=== PATIENT | female | born 1985 | race Caucasian/White ===

== ENCOUNTER 2021-01-04 12:53 | Outpatient (REF) | payer OTHER, SELFPAY ==
--- NOTE | ~2021-01-04 | XR_ITS ---
EXAMINATION: XR hand LT min 3V, XR hand RT min 3V CLINICAL INFORMATION: Bilateral hand pain. COMPARISON: None. TECHNIQUE: Left hand 3 views. Right hand 3 views. FINDINGS: LEFT HAND: No bony abnormality is demonstrated. Joint spaces are maintained. No erosions or soft tissue calcifications. RIGHT HAND: 3 views the right hand are also normal. XR/XR hand LT min 3V IMPRESSION: Normal examination.
--- NOTE | ~2021-01-04 | XR_ITS ---
EXAMINATION: XR hand LT min 3V, XR hand RT min 3V CLINICAL INFORMATION: Bilateral hand pain. COMPARISON: None. TECHNIQUE: Left hand 3 views. Right hand 3 views. FINDINGS: LEFT HAND: No bony abnormality is demonstrated. Joint spaces are maintained. No erosions or soft tissue calcifications. RIGHT HAND: 3 views the right hand are also normal. XR/XR hand RT min 3V IMPRESSION: Normal examination.
[2021-01-04 15:44] LABS: C Reactive Protein 0.14 mg/dL (< or = 0.50); Rheumatoid Factor < 15.0 IU/mL (<15.0)
[2021-01-04 16:43] LABS: Erythrocyte Sedimentation Rate 2 MM/HR (0-20)
[2021-01-10 13:57] LABS: Anti Nuclear Antibody Screen NEGATIVE (NEGATIVE)
== END 2021-01-04 12:54 | disposition home or self-care (01) ==
LOC: HO.HMGCX 12:53
PROVIDERS: PCP Internal Medicine; Visit Provider Internal Medicine
DX: M79.641 Pain in right hand (principal)
CPT/HCPCS: 36415; 73130; 85652; 86038; 86039; 86140; 86431

== ENCOUNTER 2021-08-13 13:27 | Emergency (ER) | payer OTHER, SELFPAY ==
--- NOTE | ~2021-08-13 | CT_ITS ---
EXAMINATION: CT HEAD WITHOUT CONTRAST CLINICAL INFORMATION: Head injury. Loss of consciousness. COMPARISON: None TECHNIQUE: Contiguous axial imaging was performed from the skull base to vertex without intravenous administration of contrast. Coronal and sagittal reformatted images are performed at CT scanner This CT examination was performed using dose optimization techniques as appropriate, variously including the following: *Automated exposure control *Adjustment of mA and/or kV according to patient size (this includes techniques or standardized protocols for targeted exams where dose is matched to indication/reason for exam; i.e. extremities or head) *Use of iterative reconstruction technique DLP: 606 mGy-cm FINDINGS: There is no evidence of acute intracranial hemorrhage or territorial infarction. No abnormal mass effect or midline shift is seen. Gagnon to white matter differentiation is well preserved. No extra-axial fluid collections are identified. The ventricles are normal in size. There is no abnormal attenuation within the brain parenchyma. The osseous structures and soft tissues are normal. The mastoid air cells and visualized portions of the paranasal sinuses are well aerated. CT/CT head/brain wo con IMPRESSION: No acute intracranial pathology.
[2021-08-13 14:08] VITALS: BP 105/73; PULSE 74; RESP 18; TEMP 36.6; O2SAT 98; BMI 20.3
[2021-08-13] MEDS: Ondansetron ODT 4 MG TAB.RAPDIS TRANSLINGU (14:15)
--- NOTE | 2021-08-13 17:04 | ED.HEATRA ---
HPI - Head Injury General Chief complaint: Head Injury Stated complaint: ? Concussion Time Seen by Provider: 08/13/21 15:23 Source: patient Mode of arrival: ambulatory Limitations: no limitations History of Present Illness HPI Narrative: 36-year-old female who presents emergency department for evaluation head injury with headache, nausea, vomiting, feeling off balance. The patient was playing indoor soccer yesterday at around 21:30 when a soccer ball was kicked and struck her in the left caodaism area of her head. The patient states that she developed loss of vision in her ringing sensation in both ears. She states she went down to her knees but does not think that she lost consciousness. She states that she had difficulty remembering what happened for brief period of time. She states she got up and tried to continue to play but then took herself out of the game since she was not feeling well. She states that she went home and went to bed. When she woke up this morning she had a headache. She describes the headache as being located behind her eyes, the headache is a pressure-like sensation which is been constant initial 3/10. She has had associated nausea with no vomiting. She has felt off balance. She states she is having difficulty concentrating. She has intermittent ringing in both ears. She took ibuprofen last night and she believes it did help but she continues to have symptoms this morning. The patient's symptoms are persisting, therefore she came to the emergency department for evaluation. She denied being ill prior to the head injury, she denied fever, chills, chest pain, shortness of breath, rhinorrhea, cough, abdominal pain. The patient does have a history endometriosis and does take progesterone on a regular basis. She also takes Vyvanse and sertraline. She does not take blood thinners. Complaint: head injury Onset (ago): day(s) (1) Mechanism of Injury: sports related injury (Kicked soccer ball struck the left side of her head) Place: other (Indoor soccer) Loss of Consciousness: no Location of injury: temporal (Left) Severity: severe Severity scale (1-10): 3 Quality: other (Pressure) Radiation: none Other Injuries: none Associated symptoms: vision changes, nausea and vertigo Related Data Previous Rx's Medication Instructions Recorded metoclopramide HCl 10 mg tablet 10 mg PO Q6H PRN #14 tab 08/13/21 (Reglan) Allergies Allergy/AdvReac Type Severity Reaction Status Date / Time Unable to Assess Allergy Verified 08/13/21 16:10 Review of Systems Review of Systems: Yes all other systems are reviewed and are negative [facility] Past Medical History FOR[facility], [facility] Narrative: Social history: The patient works as a occupational/speech therapist, she is her Bam is here in the emergency department with her. She denies tobacco use. She drinks alcohol twice a month. She takes marijuana edibles at night to help her sleep. Medical History ADD (attention deficit disorder) Bladder endometriosis Depression Social History Social History Advance Directives: No Advance Directives Information Provided: No Patient : No (unsure) Physical Exam Vital Signs: Vital Signs: Last Vital Signs Temp 97.9 F 08/13/21 14:08 Pulse 74 08/13/21 14:08 Resp 18 08/13/21 14:08 BP 105/73 08/13/21 14:08 Pulse Ox 98 08/13/21 14:08 BMI result Body Mass Index 20.3 Const: General: cooperative and no acute distress Orientation/consciousness: oriented to person and oriented to place Limitations: no limitations HENMT: Head: Yes normal to inspection, Yes normocephalic and Yes atraumatic Ears: external ears normal and TM's normal bilaterally General nose exam: Normal external nose present Face and sinus: Yes normal facial exam Mouth: Normal oral and palatal mucosa present Throat: Yes posterior oropharynx normal Eyes: General: appearance normal, both eyes and all related structures Pupils: Equal, round and reactive pupils present Neck: Neck: Yes normal visual inspection, Yes no lymphadenopathy, Yes trachea midline and Yes supple Chest: Chest palpation & inspection: normal inspection of the chest and normal palpation of entire chest wall Resp: Effort & Inspection: normal respiratory effort and able to speak in complete sentences Auscultation: clear to auscultation bilaterally Cardio: Rate: regular rate Rhythm: regular rhythm Heart sounds: S1 normal heart sound present, S2 normal heart sound present and no murmurs GI: Inspection: Yes normal to inspection Palpation (GI): Soft to palpation, nontender and no guarding Auscultation: normal bowel sounds : General: Yes no CVA tenderness Back/Spine/Pelvis: Back: no CVA tenderness Skin: General skin exam: no rashes or lesions noted Neuro: General: oriented to person and oriented to place Cranial nerves: Yes CN's II-XII intact bilaterally and Yes Equal, round and reactive pupils present Cognition (Neuro): normal cognition Motor exam (neuro): 5/5 motor strength present throughout Extrem: General: Yes normal to inspection Psych: Appearance: grossly normal Speech and movement: Normal speech and movement present Affect: normal affect Attitude: cooperative Thought process: Normal thought process present Thought content: Normal thought content present Course Course Course Narrative: 36-year-old female who presents emergency department for evaluation of headache, nausea, off balance, ringing in her ears after getting a head injury yesterday at 21:30 hours, the patient was playing indoor soccer and a soccer ball was kicked and struck her her left caodaism area of her head. Patient has no tenderness with palpation of her scalp. Her neurologic exam was nonfocal. Given the mechanism injury in the area of injury, I am concerned the patient may have a skull fracture , bleed versus concussion. Patient was ordered to get Tylenol 975 mg orally, Reglan 10 mg orally and Benadryl 50 mg orally. She also received Zofran [address] scan of the patient's head without IV contrast will be obtained. 1808: Patient's CT scan of the brain revealed no acute abnormalities. Patient's presentation is consistent with concussion. I did discuss this with the patient and her . The patient will be given a work note to return on 08/19/2021. Her headaches and symptoms will treated with the following regimen: Reglan 10 mg, Benadryl 50 mg Excedrin migraine 1 tablet every 6 hours as needed. She was given verbal and printed instructions and discharged home. Discharge Plan Discharge Clinical Impression: Closed head injury, Concussion without loss of consciousness Patient Disposition: Home, Self-Care Instructions: Head Injury (ED) Additional Instructions: The CT scan of your head without contrast was normal. There were no skull fractures, bleeding in your brain or other abnormalities noted by the radiologist. This is very reassuring Your symptoms were caused by the head injury which caused you to have a concussion. I want you to take the following 3 medications together every 6 hours as needed for headache, nausea or vomiting. Reglan (metoclopramide) in 10 mg, 1 pill Benadryl 25 mg, 2 pills Excedrin migraine, 1 pill. After you take these medications, lie down in a dark quiet room and try to fall asleep. These medications will make you sleepy, do not drive or work after taking these medications. Follow-up with your doctor in 2 days. Please return to the emergency department if your symptoms get worse or if you develop any symptoms that are concerning to you. Please see the work note. Prescriptions: New metoclopramide HCl [Reglan] 10 mg tablet 10 mg PO Q6H PRN (Reason: nausea and vomiting) Qty: 14 0RF Stand Alone Forms: Work/School Release
[2021-08-13] MEDS: Acetaminophen 325 MG TABLET 975 MG PO (17:47)
[2021-08-13] MEDS: diphenhydrAMINE HCL 25 MG TABLET 50 MG PO (17:48)
[2021-08-13] MEDS: Metoclopramide HCl 10 MG TABLET PO (17:49)
== END 2021-08-13 18:40 | disposition home or self-care (01) ==
PROVIDERS: Emergency Provider Emergency Medicine Emergency Medical Services; PCP Internal Medicine
DX: S09.90XA Unspecified injury of head, initial encounter (principal); S06.0X0A Concussion without loss of consciousness, initial encounter; W21.02XA Struck by soccer ball, initial encounter; Y93.66 Activity, soccer; Y92.318 Other athletic court as the place of occurrence of the external cause; Y99.9 Unspecified external cause status
CPT/HCPCS: 70450; 99283; 99284; Q0163

== ENCOUNTER 2021-09-13 10:38 | Outpatient (REF) | payer OTHER, SELFPAY ==
[2021-09-14 11:10] LABS: BV Int Neg Control Negative (Negative); BV Int Pos Control Positive (Positive)
== END 2021-09-13 10:39 | disposition home or self-care (01) ==
LOC: HO.LAB 10:38
PROVIDERS: PCP Internal Medicine; Visit Provider Advanced Practice Midwife
DX: Z01.411 Encounter for gynecological examination (general) (routine) with abnormal findings (principal); N89.8 Other specified noninflammatory disorders of vagina; E28.2 Polycystic ovarian syndrome; N80.0 Endometriosis of uterus
CPT/HCPCS: 87480; 87510; 87660

== ENCOUNTER 2021-10-30 11:58 | Emergency (ER) | payer OTHER, SELFPAY ==
[2021-10-30] VITALS (7 sets, daily range): BP systolic 102–116; BP diastolic 55–80; PULSE 62–89; RESP 15–20; TEMP 36.7–37.4; O2SAT 98–100; BMI 20.3
--- NOTE | 2021-10-30 | ECG_ITS ---
Test Reason : CHEST PAIN Blood Pressure : / mmHG Vent. Rate : 067 BPM Atrial Rate : 067 BPM P-R Int : 128 ms QRS Dur : 088 ms QT Int : 384 ms P-R-T Axes : 061 082 -32 degrees QTc Int : 405 ms Normal sinus rhythm with sinus arrhythmia T wave abnormality, consider inferior ischemia Abnormal ECG No previous ECGs available Referred By: Generic ED Physician Electronically Signed By:LEWIS MORA MD
--- NOTE | ~2021-10-30 | CT_ITS ---
EXAMINATION: CT ANGIOGRAM OF THE CHEST WITH AND WITHOUT CONTRAST (CT PULMONARY ANGIOGRAM FOR PE) CLINICAL INFORMATION: Reason for Exam Chest pain, shortness of breath, status post COVID COMPARISON: None TECHNIQUE: Prior to contrast administration, noncontrast localization images were obtained. Subsequently, multidetector volumetric imaging was performed from the thoracic inlet to below the diaphragms following the administration of 65 mL Omnipaque 350 intravenous contrast. No contrast reaction reported Sagittal, coronal, and MIP oblique sagittal reformatted images were obtained on the CT workstation, uploaded to PACS, and reviewed. This CT examination was performed using dose optimization techniques as appropriate, variously including the following: *Automated exposure control *Adjustment of mA and/or kV according to patient size (this includes techniques or standardized protocols for targeted exams where dose is matched to indication/reason for exam; i.e. extremities or head) *Use of iterative reconstruction technique Total exam dose-length product 217 mGy-cm FINDINGS: QUALITY OF STUDY/CONTRAST BOLUS: Satisfactory. PULMONARY ARTERIES: No central or segmental pulmonary emboli. THORACIC AORTA: No aneurysm or dissection. LUNG: No focal consolidation, nodules or masses. PLEURA: No pleural effusion or pneumothorax. MEDIASTINUM: Normal heart size. No pericardial effusion. No hilar or mediastinal lymphadenopathy. No evidence of septal bowing or right heart strain. CHEST WALL/AXILLA: No axillary or internal mammary lymphadenopathy. OSSEOUS STRUCTURES: No acute or suspicious osseous abnormality. UPPER ABDOMEN: There is reflux of contrast into the hepatic veins to suggest elevated right heart pressures. CT/CT angio chest PE protocol IMPRESSION: No evidence of pulmonary embolism. There is reflux of contrast into the hepatic veins questionable for right heart compromise. VTE: negative
--- NOTE | 2021-10-30 12:49 | ED.GENADULT ---
HPI - General Adult General Chief complaint: General Medical Stated complaint: WEAKNESS X'S DAYS Time Seen by Provider: 10/30/21 12:15 Source: patient Mode of arrival: ambulatory Limitations: no limitations History of Present Illness HPI narrative: 36-year-old female who presents emergency department for evaluation of multiple complaints including weakness, dizziness, chest pain, tachycardia, fever, shortness of breath and dyspnea on exertion. The patient states that diagnosed with COVID-19 on 10/11/2021 (26 days prior to evaluation). She states that with her initial symptoms she had sore throat, cough, fever, headaches, congestion shortness of breath. She states that most of the symptoms have improved except she continues to feel short of breath. She states that she feels slightly short of breath at rest but with exertion she gets very short of breath. She states she has to walk very slowly and she can walk 50 ft before getting very winded. She also states that bending down seems to exacerbate her shortness of breath and also causes or heart rate to go up. She states that today her heart rate was as high as 150 beats per minute when she bent over. She states that yesterday she developed chest pain while she was at rest. She points to her sternum and left chest when asked to localize the pain. She states the pain radiates to her left axilla, left back and down her left arm. The chest pain is intermittent, sharp and is 8/10 at its worst. She states that she has had fevers over the past several days as high as 100 degrees F. she states that she has also had intermittent sweats. She denied any pain or swelling in her lower extremities. The patient did receive the Moderna vaccine x3 shots. Related Data Home Medications Medication Instructions Recorded Confirmed lisdexamfetamine 20 mg capsule 20 mg PO QAM 09/13/21 (Vyvanse) norethindrone acetate 5 mg tablet 5 mg PO DAILY 09/13/21 sertraline 25 mg tablet 25 mg PO DAILY 09/13/21 Allergies Allergy/AdvReac Type Severity Reaction Status Date / Time Unable to Assess Allergy Verified 09/13/21 11:04 Review of Systems Review of Systems: Yes all other systems are reviewed and are negative [facility] Past Medical History [facility] Narrative: Past medical history: Depression, ADHD, endometriosis, polycystic ovarian syndrome. Past surgical history: Sinus surgery x3, right breast cyst removal, jaw surgery. Social history: The patient works as an occupational therapist. She states that all of her coworkers have been sick with COVID. She denies tobacco use. She rarely drinks alcohol. She does use marijuana edibles on a frequent basis. Medical History ADD (attention deficit disorder) Bladder endometriosis Breast cyst Depression Surgical History History of sinus surgery Social History Social History Alcohol intake: current Alcohol intake frequency: a few times a week Patient Tobacco Use Status: Never used Tobacco Use of substances other than those prescribed or required for medical reasons: Yes Substance Use Type: Marijuana Advance Directives: No Patient : No Gender identity: Female Physical Exam ED Vital Signs: Vital Signs - 24 hr 10/30/21 12:05 10/30/21 13:36 10/30/21 13:41 Temperature 98.5 F Pulse Rate 69 63 78 Respiratory Rate 16 Blood Pressure 113/71 102/56 L 108/71 Pulse Oximetry 99 10/30/21 13:42 10/30/21 14:02 10/30/21 15:55 Temperature 98.1 F 99.3 F Pulse Rate 89 62 70 Respiratory Rate 18 20 Blood Pressure 116/78 106/55 L 104/64 Pulse Oximetry 100 99 BMI result Body Mass Index 20.3 Const General: cooperative and no acute distress Orientation/consciousness: oriented to person and oriented to place Limitations: no limitations [place] Head: Yes normal to inspection, Yes normocephalic and Yes atraumatic Ears: external ears normal General nose exam: Normal external nose present Face and sinus: Yes normal facial exam Mouth: Normal oral and palatal mucosa present Throat: Yes posterior oropharynx normal Eyes General: appearance normal, both eyes and all related structures Pupils: Equal, round and reactive pupils present Neck Neck: Yes normal visual inspection, Yes no lymphadenopathy, Yes trachea midline and Yes supple Chest Chest palpation & inspection: normal inspection of the chest and normal palpation of entire chest wall Resp Effort & Inspection: normal respiratory effort and able to speak in complete sentences Auscultation: clear to auscultation bilaterally Cardio Rate: regular rate Rhythm: regular rhythm Heart sounds: S1 normal heart sound present, S2 normal heart sound present and no murmurs GI Inspection: Yes normal to inspection Palpation (GI): Soft to palpation, nontender and no guarding Auscultation: normal bowel sounds General: Yes no CVA tenderness Back/Spine/Pelvis Back: no CVA tenderness Skin General skin exam: no rashes or lesions noted Neuro General: oriented to person and oriented to place Cranial nerves: Yes CN's II-XII intact bilaterally and Yes Equal, round and reactive pupils present Cognition (Neuro): normal cognition Motor exam (neuro): 5/5 motor strength present throughout Extrem General: Yes normal to inspection Psych Appearance: grossly normal Speech and movement: Normal speech and movement present Affect: normal affect Attitude: cooperative Thought process: Normal thought process present Thought content: Normal thought content present Course Course Course Narrative: 36-year-old female who presents emergency department for evaluation weakness, dizziness, chest pain, tachycardia, fever, shortness of breath dyspnea on exertion, she is approximately 26 days post COVID 19 infection. Vital signs here in the emergency department were unremarkable. Her examination was unremarkable. Differential includes was not limited to pulmonary embolism, viral cardiomyopathy, pericarditis, myocarditis, anemia, electrolyte abnormalities, COVID long haul syndrome. The patient does have polycystic ovarian syndrome and is on a progesterone control pill which makes her at increased risk for PE. I did order laboratory evaluation to include CBC, CMP, D-dimer, PT/INR, PTT, ESR, CRP, CK and test. I will obtain a CT pulmonary angiogram PE protocol and an ECG. We will check orthostatics on the patient and the patient will be treated with normal saline x1 L. 1721: Laboratory evaluation: WBC low 3700 (patient states that this is chronic), troponin was below detectable limits. CRP was elevated 3.31, ESR was less than 2. TSH was normal. D-dimer was not elevated 188. Radiology evaluation: CT angiogram PE protocol no PE, radiologist noted reflux of contrast into the hepatic veins question for right heart compromise At this time I do not have a clear etiology for the patient's symptoms, cardiomyopathy and pulmonary hypertension still need to be considered, also post COVID syndrome is a possibility. I did discuss the patient's presentation with our covering mobile security specialist Dr. Bingham who states that he will follow the patient up for further evaluation of her symptoms. Medical Decision Making Lab Data Result diagrams: 10/30/21 13:27 10/30/21 13:27 Labs: Lab Results 10/30/21 10/30/21 10/30/21 Range/Units 13:13 13:26 13:26 WBC (4.8-10.8) X10*3/uL RBC (4.20-5.50) X10*6/uL Hgb (12.0-16.0) g/dl Hct (37.0-47.0) % MCV (80.0-98.0) fL MCH (27.0-33.0) pg MCHC (31.0-35.0) g/dl RDW (11.0-16.0) % Plt Count (160-400) X10*3/uL MPV (9.4-12.3) fL Immature Gran % (Auto) (0.0-0.4) % Neut % (Auto) (45-73) % Lymph % (Auto) (20-40) % [place] % (Auto) (2-11) % Eos % (Auto) (0-4) % Baso % (Auto) (0-2) % Lymph # (Auto) (1.2-4.9) X10*3/uL [place] # (Auto) (0.1-1.2) X10*3/uL Eos # (Auto) (0.0-0.4) X10*3/uL Baso # (Auto) (0.0-0.2) X10*3/uL Abs Immat Gran (auto) (0.00-0.03) X10*3/uL Absolute Neuts (auto) (2.0-8.3) x10*3/uL Absolute Nucleated RBC (0.0-0.012) X10*3/uL Nucleated RBC % (auto) (0.0-0.2) /100WBC ESR (0-20) MM/HR PT (9.9-13.0) SEC INR (0.9-1.1) APTT (24.1-38.0) SEC D-Dimer High Sensitivty NG/ML Sodium (135-145) mmol/L Potassium (3.3-5.1) mmol/L Chloride (96-108) mmol/L Carbon Dioxide (22-29) mmol/L Anion Gap (12-20) BUN (9-16) mg/dL Creatinine (0.5-1.4) mg/dL Estim Creat Clear Calc Estimated GFR Random Glucose (60-115) mg/dL Calcium (8.4-10.2) mg/dL Total Bilirubin (0.0-1.0) mg/dL AST (5-31) U/L ALT (0-31) U/L Alkaline Phosphatase (39-117) U/L Total Creatine Kinase (26-140) U/L Troponin I High Sens < 3.5 (<3.5-17.0) ng/L C-Reactive Protein (< or = 0.50) mg/dL B-Natriuretic Peptide (<100) pg/mL Total Protein (6.5-8.0) g/dL Albumin (3.5-5.0) g/dL Lipase (8-78) U/L TSH 1.41 (0.32-4.0) uIU/mL Beta HCG, Quant < 2 mIU/mL Urine Color YELLOW Urine Appearance CLEAR Urine pH 7.0 (5.0-8.0) Ur Specific [place] 1.010 (1.005-1.025) Urine Protein NEG (NEG-TRACE) MG/DL Urine Glucose (UA) NEG (NEG) MG/DL Urine Ketones NEG (NEG) MG/DL Urine Blood NEG (NEG) Urine Nitrite NEG (NEG) Ur Leukocyte Esterase NEG (NEG) 10/30/21 10/30/21 10/30/21 Range/Units 13:27 13:27 13:27 WBC 3.7 L (4.8-10.8) X10*3/uL RBC 4.55 (4.20-5.50) X10*6/uL Hgb 13.5 (12.0-16.0) g/dl Hct 40.6 (37.0-47.0) % MCV 89.2 (80.0-98.0) fL MCH 29.7 (27.0-33.0) pg MCHC 33.3 (31.0-35.0) g/dl RDW 13.2 (11.0-16.0) % Plt Count 287 (160-400) X10*3/uL MPV 10.0 (9.4-12.3) fL Immature Gran % (Auto) 0.0 (0.0-0.4) % Neut % (Auto) 58.1 (45-73) % Lymph % (Auto) 31.5 (20-40) % [place] % (Auto) 8.8 (2-11) % Eos % (Auto) 1.1 (0-4) % Baso % (Auto) 0.5 (0-2) % Lymph # (Auto) 1.2 (1.2-4.9) X10*3/uL [place] # (Auto) 0.3 (0.1-1.2) X10*3/uL Eos # (Auto) 0.0 (0.0-0.4) X10*3/uL Baso # (Auto) 0.0 (0.0-0.2) X10*3/uL Abs Immat Gran (auto) 0.00 (0.00-0.03) X10*3/uL Absolute Neuts (auto) 2.1 (2.0-8.3) x10*3/uL Absolute Nucleated RBC 0.000 (0.0-0.012) X10*3/uL Nucleated RBC % (auto) 0.0 (0.0-0.2) /100WBC ESR (0-20) MM/HR PT (9.9-13.0) SEC INR (0.9-1.1) APTT (24.1-38.0) SEC D-Dimer High Sensitivty NG/ML Sodium 139 (135-145) mmol/L Potassium 3.7 (3.3-5.1) mmol/L Chloride 109 H (96-108) mmol/L Carbon Dioxide 23 (22-29) mmol/L Anion Gap 11 L (12-20) BUN 9 (9-16) mg/dL Creatinine 0.69 (0.5-1.4) mg/dL Estim Creat Clear Calc 106.9 Estimated GFR > 60 Random Glucose 87 (60-115) mg/dL Calcium 9.3 (8.4-10.2) mg/dL Total Bilirubin 0.3 (0.0-1.0) mg/dL AST 22 (5-31) U/L ALT 23 (0-31) U/L Alkaline Phosphatase 32 L (39-117) U/L Total Creatine Kinase 74 (26-140) U/L Troponin I High Sens (<3.5-17.0) ng/L C-Reactive Protein 3.31 H (< or = 0.50) mg/dL B-Natriuretic Peptide 12 (<100) pg/mL Total Protein 6.7 (6.5-8.0) g/dL Albumin 3.9 (3.5-5.0) g/dL Lipase 22 (8-78) U/L TSH (0.32-4.0) uIU/mL Beta HCG, Quant mIU/mL Urine Color Urine Appearance Urine pH (5.0-8.0) Ur Specific [place] (1.005-1.025) Urine Protein (NEG-TRACE) MG/DL Urine Glucose (UA) (NEG) MG/DL Urine Ketones (NEG) MG/DL Urine Blood (NEG) Urine Nitrite (NEG) Ur Leukocyte Esterase (NEG) 10/30/21 10/30/21 Range/Units 13:27 13:27 WBC (4.8-10.8) X10*3/uL RBC (4.20-5.50) X10*6/uL Hgb (12.0-16.0) g/dl Hct (37.0-47.0) % MCV (80.0-98.0) fL MCH (27.0-33.0) pg MCHC (31.0-35.0) g/dl RDW (11.0-16.0) % Plt Count (160-400) X10*3/uL MPV (9.4-12.3) fL Immature Gran % (Auto) (0.0-0.4) % Neut % (Auto) (45-73) % Lymph % (Auto) (20-40) % [place] % (Auto) (2-11) % Eos % (Auto) (0-4) % Baso % (Auto) (0-2) % Lymph # (Auto) (1.2-4.9) X10*3/uL [place] # (Auto) (0.1-1.2) X10*3/uL Eos # (Auto) (0.0-0.4) X10*3/uL Baso # (Auto) (0.0-0.2) X10*3/uL Abs Immat Gran (auto) (0.00-0.03) X10*3/uL Absolute Neuts (auto) (2.0-8.3) x10*3/uL Absolute Nucleated RBC (0.0-0.012) X10*3/uL Nucleated RBC % (auto) (0.0-0.2) /100WBC ESR 6 (0-20) MM/HR PT 11.9 (9.9-13.0) SEC INR 1.0 (0.9-1.1) APTT 29.2 (24.1-38.0) SEC D-Dimer High Sensitivty 188 NG/ML Sodium (135-145) mmol/L Potassium (3.3-5.1) mmol/L Chloride (96-108) mmol/L Carbon Dioxide (22-29) mmol/L Anion Gap (12-20) BUN (9-16) mg/dL Creatinine (0.5-1.4) mg/dL Estim Creat Clear Calc Estimated GFR Random Glucose (60-115) mg/dL Calcium (8.4-10.2) mg/dL Total Bilirubin (0.0-1.0) mg/dL AST (5-31) U/L ALT (0-31) U/L Alkaline Phosphatase (39-117) U/L Total Creatine Kinase (26-140) U/L Troponin I High Sens (<3.5-17.0) ng/L C-Reactive Protein (< or = 0.50) mg/dL B-Natriuretic Peptide (<100) pg/mL Total Protein (6.5-8.0) g/dL Albumin (3.5-5.0) g/dL Lipase (8-78) U/L TSH (0.32-4.0) uIU/mL Beta HCG, Quant mIU/mL Urine Color Urine Appearance Urine pH (5.0-8.0) Ur Specific [place] (1.005-1.025) Urine Protein (NEG-TRACE) MG/DL Urine Glucose (UA) (NEG) MG/DL Urine Ketones (NEG) MG/DL Urine Blood (NEG) Urine Nitrite (NEG) Ur Leukocyte Esterase (NEG) Critical Care Time Critical Care Time Critical Care Time: Yes Total Critical Care Time: 30 Attestation: Critical Care: The patient was critically ill with a high probability of imminent or life threatening deterioration. I spent greater than 30 minutes of discontinuous time evaluating the patient,delivering critical care at the bedside, discussing and evaluating pertinent data with consultants. Critical care time does not include time spent performing separately billable procedures or teaching. Total time spent performing critical care was 30 minutes. Discharge Plan Discharge Clinical Impression: Acute dyspnea, Tachycardia, Post covid-19 condition, unspecified Patient Disposition: Home, Self-Care Additional Instructions: Your blood work was essentially unremarkable, your white blood cell count was slightly low at 3700, your C-reactive protein was slightly elevated at 3.31. The CT pulmonary angiogram pulmonary embolism protocol revealed no blood clots in your lungs and your lungs look normal. The radiologist noted that there was reflux of contrast into your hepatic veins which is concerning for possibly right heart strain. This is a nonspecific finding and I did talk to our covering mobile security specialist, Dr. Bingham, Call his office tomorrow and tell the office staff that he wants to see you as soon as possible to evaluate your symptoms and possibly get an echocardiogram of your heart. No work for 1 week. You should rest and take it easy. Please return to the emergency department if your symptoms get worse or if you develop any symptoms that are concerning to you. Prescriptions: No Action Vyvanse 20 mg capsule 20 mg PO QAM 0RF sertraline 25 mg tablet 25 mg PO DAILY 0RF norethindrone acetate 5 mg tablet 5 mg PO DAILY 0RF Referrals: Dianna Bingham MD [Physician] - 1 day (Call the office tomorrow to try to make appointment as soon as possible to see Dr. Bingham)
[2021-10-30] MEDS: 0.9 % Sodium Chloride 1,000 ML 999 ML IV (13:15)
[2021-10-30 13:20] LABS: Appearance Urine CLEAR; Color Urine YELLOW; Glucose Urine UA NEG (NEG); Leukocyte Esterase Urine NEG (NEG); Nitrite Urine NEG (NEG); Urine Blood NEG (NEG); Urine Ketones NEG (NEG); Urine Protein NEG (NEG-TRACE)
[2021-10-30 13:34] LABS: MANUAL DIFF FLAG NO
[2021-10-30 13:37] LABS: Basophils Percent Auto 0.5 % (0-2); Eosinophils Percent Auto 1.1 % (0-4); Hematocrit 40.6 % (37.0-47.0); Hemoglobin 13.5 g/dl (12.0-16.0); Lymphocytes Absolute Auto 1.2 X10*3/uL (1.2-4.9); Lymphocytes Percent Auto 31.5 % (20-40); Mean Corpuscular HGB Conc 33.3 g/dl (31.0-35.0); Mean Corpuscular Hemoglobin 29.7 pg (27.0-33.0); Mean Corpuscular Volume 89.2 fL (80.0-98.0); Monocytes Absolute Auto 0.3 X10*3/uL (0.1-1.2); Monocytes Percent Auto 8.8 % (2-11); Neutrophils Absolute Auto 2.1 x10*3/uL (2.0-8.3); Neutrophils Percent Auto 58.1 % (45-73); Platelet Count 287 X10*3/uL (160-400); Red Blood Count 4.55 X10*6/uL (4.20-5.50); Red Cell Distribution Width 13.2 % (11.0-16.0); White Blood Count 3.7 X10*3/uL (4.8-10.8)
[2021-10-30 13:42] LABS: Prothrombin Time 11.9 SEC (9.9-13.0)
[2021-10-30 13:44] LABS: D Dimer High Sensitivity 188 NG/ML; Partial Thromboplastin Time 29.2 SEC (24.1-38.0)
--- NOTE | 2021-10-30 13:45 | PC.NURSE ---
Patient arrives reporting lasting COVID symptoms and not feeling right. Reports episodes of tachycardia, shortness of breath, and hypotension at times. reports beings over makes her tachycardic. Completed orthostatic vitals. Had patient bend over and forward when on monitor. Did not see tachycardia at that time. Awaiting lab results. Will continue to monitor.
[2021-10-30 13:53] LABS: Alanine Aminotransferase 23 U/L (0-31); Albumin Level 3.9 g/dL (3.5-5.0); Alkaline Phosphatase 32 U/L (39-117); Anion Gap 11 (12-20); Aspartate Amino Transferase 22 U/L (5-31); Bilirubin Total 0.3 mg/dL (0.0-1.0); Blood Urea Nitrogen 9 mg/dL (9-16); C Reactive Protein 3.31 mg/dL (< or = 0.50); Calcium 9.3 mg/dL (8.4-10.2); Carbon Dioxide 23 mmol/L (22-29); Chloride 109 mmol/L (96-108); Creatinine Clr Calc Pharmacy 106.9; Estimated Glomerular Filt Rate > 60; Glucose Random 87 mg/dL (60-115); Lipase 22 U/L (8-78); Potassium 3.7 mmol/L (3.3-5.1); Sodium 139 mmol/L (135-145); Total Protein 6.7 g/dL (6.5-8.0)
[2021-10-30 13:58] LABS: Troponin-I High Sensitivity < 3.5 ng/L (<3.5-17.0)
[2021-10-30 13:58] LABS: B Type Natriuretic Peptide 12 pg/mL (<100)
[2021-10-30 14:13] LABS: Erythrocyte Sedimentation Rate 6 MM/HR (0-20)
[2021-10-30 14:13] LABS: HCG Quantitative < 2 mIU/mL; TSH reflex Free T4 1.41 uIU/mL (0.32-4.0)
[2021-10-30] MEDS: iohexoL 350 MG/ML 100 ML INFUS..BTL IV (14:53)
--- NOTE | 2021-10-30 19:10 | ED_ITS ---
HPI - General Adult General Chief complaint: General Medical Stated complaint: WEAKNESS X'S DAYS Time Seen by Provider: 10/30/21 12:15 Source: patient Mode of arrival: ambulatory Limitations: no limitations Related Data Home Medications Medication Instructions Recorded Confirmed lisdexamfetamine 20 mg capsule 20 mg PO QAM 09/13/21 (Vyvanse) norethindrone acetate 5 mg tablet 5 mg PO DAILY 09/13/21 sertraline 25 mg tablet 25 mg PO DAILY 09/13/21 Allergies Allergy/AdvReac Type Severity Reaction Status Date / Time Unable to Assess Allergy Verified 09/13/21 11:04 [facility] Past Medical History Medical History ADD (attention deficit disorder) Bladder endometriosis Breast cyst Depression Surgical History History of sinus surgery Social History Social History Alcohol intake: current Alcohol intake frequency: a few times a week Patient Tobacco Use Status: Never used Tobacco Use of substances other than those prescribed or required for medical reasons: Yes Substance Use Type: Marijuana Advance Directives: No Patient : No Gender identity: Female Physical Exam ED Vital Signs: Vital Signs - 24 hr 10/30/21 12:05 10/30/21 13:36 10/30/21 13:41 Temperature 98.5 F Pulse Rate 69 63 78 Respiratory Rate 16 Blood Pressure 113/71 102/56 L 108/71 Pulse Oximetry 99 10/30/21 13:42 10/30/21 14:02 10/30/21 15:55 Temperature 98.1 F 99.3 F Pulse Rate 89 62 70 Respiratory Rate 18 20 Blood Pressure 116/78 106/55 L 104/64 Pulse Oximetry 100 99 10/30/21 17:49 Temperature 98.5 F Pulse Rate 73 Respiratory Rate 15 Blood Pressure 104/64 Pulse Oximetry 98 BMI result Body Mass Index 20.3 Medical Decision Making Lab Data Result diagrams: 10/30/21 13:27 10/30/21 13:27 Labs: Lab Results 10/30/21 10/30/21 10/30/21 Range/Units 13:13 13:26 13:26 WBC (4.8-10.8) X10*3/uL RBC (4.20-5.50) X10*6/uL Hgb (12.0-16.0) g/dl Hct (37.0-47.0) % MCV (80.0-98.0) fL MCH (27.0-33.0) pg MCHC (31.0-35.0) g/dl RDW (11.0-16.0) % Plt Count (160-400) X10*3/uL MPV (9.4-12.3) fL Immature Gran % (Auto) (0.0-0.4) % Neut % (Auto) (45-73) % Lymph % (Auto) (20-40) % [place] % (Auto) (2-11) % Eos % (Auto) (0-4) % Baso % (Auto) (0-2) % Lymph # (Auto) (1.2-4.9) X10*3/uL [place] # (Auto) (0.1-1.2) X10*3/uL Eos # (Auto) (0.0-0.4) X10*3/uL Baso # (Auto) (0.0-0.2) X10*3/uL Abs Immat Gran (auto) (0.00-0.03) X10*3/uL Absolute Neuts (auto) (2.0-8.3) x10*3/uL Absolute Nucleated RBC (0.0-0.012) X10*3/uL Nucleated RBC % (auto) (0.0-0.2) /100WBC ESR (0-20) MM/HR PT (9.9-13.0) SEC INR (0.9-1.1) APTT (24.1-38.0) SEC D-Dimer High Sensitivty NG/ML Sodium (135-145) mmol/L Potassium (3.3-5.1) mmol/L Chloride (96-108) mmol/L Carbon Dioxide (22-29) mmol/L Anion Gap (12-20) BUN (9-16) mg/dL Creatinine (0.5-1.4) mg/dL Estim Creat Clear Calc Estimated GFR Random Glucose (60-115) mg/dL Calcium (8.4-10.2) mg/dL Total Bilirubin (0.0-1.0) mg/dL AST (5-31) U/L ALT (0-31) U/L Alkaline Phosphatase (39-117) U/L Total Creatine Kinase (26-140) U/L Troponin I High Sens < 3.5 (<3.5-17.0) ng/L C-Reactive Protein (< or = 0.50) mg/dL B-Natriuretic Peptide (<100) pg/mL Total Protein (6.5-8.0) g/dL Albumin (3.5-5.0) g/dL Lipase (8-78) U/L TSH 1.41 (0.32-4.0) uIU/mL Beta HCG, Quant < 2 mIU/mL Urine Color YELLOW Urine Appearance CLEAR Urine pH 7.0 (5.0-8.0) Ur Specific [place] 1.010 (1.005-1.025) Urine Protein NEG (NEG-TRACE) MG/DL Urine Glucose (UA) NEG (NEG) MG/DL Urine Ketones NEG (NEG) MG/DL Urine Blood NEG (NEG) Urine Nitrite NEG (NEG) Ur Leukocyte Esterase NEG (NEG) 10/30/21 10/30/21 10/30/21 Range/Units 13:27 13:27 13:27 WBC 3.7 L (4.8-10.8) X10*3/uL RBC 4.55 (4.20-5.50) X10*6/uL Hgb 13.5 (12.0-16.0) g/dl Hct 40.6 (37.0-47.0) % MCV 89.2 (80.0-98.0) fL MCH 29.7 (27.0-33.0) pg MCHC 33.3 (31.0-35.0) g/dl RDW 13.2 (11.0-16.0) % Plt Count 287 (160-400) X10*3/uL MPV 10.0 (9.4-12.3) fL Immature Gran % (Auto) 0.0 (0.0-0.4) % Neut % (Auto) 58.1 (45-73) % Lymph % (Auto) 31.5 (20-40) % [place] % (Auto) 8.8 (2-11) % Eos % (Auto) 1.1 (0-4) % Baso % (Auto) 0.5 (0-2) % Lymph # (Auto) 1.2 (1.2-4.9) X10*3/uL [place] # (Auto) 0.3 (0.1-1.2) X10*3/uL Eos # (Auto) 0.0 (0.0-0.4) X10*3/uL Baso # (Auto) 0.0 (0.0-0.2) X10*3/uL Abs Immat Gran (auto) 0.00 (0.00-0.03) X10*3/uL Absolute Neuts (auto) 2.1 (2.0-8.3) x10*3/uL Absolute Nucleated RBC 0.000 (0.0-0.012) X10*3/uL Nucleated RBC % (auto) 0.0 (0.0-0.2) /100WBC ESR (0-20) MM/HR PT (9.9-13.0) SEC INR (0.9-1.1) APTT (24.1-38.0) SEC D-Dimer High Sensitivty NG/ML Sodium 139 (135-145) mmol/L Potassium 3.7 (3.3-5.1) mmol/L Chloride 109 H (96-108) mmol/L Carbon Dioxide 23 (22-29) mmol/L Anion Gap 11 L (12-20) BUN 9 (9-16) mg/dL Creatinine 0.69 (0.5-1.4) mg/dL Estim Creat Clear Calc 106.9 Estimated GFR > 60 Random Glucose 87 (60-115) mg/dL Calcium 9.3 (8.4-10.2) mg/dL Total Bilirubin 0.3 (0.0-1.0) mg/dL AST 22 (5-31) U/L ALT 23 (0-31) U/L Alkaline Phosphatase 32 L (39-117) U/L Total Creatine Kinase 74 (26-140) U/L Troponin I High Sens (<3.5-17.0) ng/L C-Reactive Protein 3.31 H (< or = 0.50) mg/dL B-Natriuretic Peptide 12 (<100) pg/mL Total Protein 6.7 (6.5-8.0) g/dL Albumin 3.9 (3.5-5.0) g/dL Lipase 22 (8-78) U/L TSH (0.32-4.0) uIU/mL Beta HCG, Quant mIU/mL Urine Color Urine Appearance Urine pH (5.0-8.0) Ur Specific [place] (1.005-1.025) Urine Protein (NEG-TRACE) MG/DL Urine Glucose (UA) (NEG) MG/DL Urine Ketones (NEG) MG/DL Urine Blood (NEG) Urine Nitrite (NEG) Ur Leukocyte Esterase (NEG) 10/30/21 10/30/21 Range/Units 13:27 13:27 WBC (4.8-10.8) X10*3/uL RBC (4.20-5.50) X10*6/uL Hgb (12.0-16.0) g/dl Hct (37.0-47.0) % MCV (80.0-98.0) fL MCH (27.0-33.0) pg MCHC (31.0-35.0) g/dl RDW (11.0-16.0) % Plt Count (160-400) X10*3/uL MPV (9.4-12.3) fL Immature Gran % (Auto) (0.0-0.4) % Neut % (Auto) (45-73) % Lymph % (Auto) (20-40) % [place] % (Auto) (2-11) % Eos % (Auto) (0-4) % Baso % (Auto) (0-2) % Lymph # (Auto) (1.2-4.9) X10*3/uL [place] # (Auto) (0.1-1.2) X10*3/uL Eos # (Auto) (0.0-0.4) X10*3/uL Baso # (Auto) (0.0-0.2) X10*3/uL Abs Immat Gran (auto) (0.00-0.03) X10*3/uL Absolute Neuts (auto) (2.0-8.3) x10*3/uL Absolute Nucleated RBC (0.0-0.012) X10*3/uL Nucleated RBC % (auto) (0.0-0.2) /100WBC ESR 6 (0-20) MM/HR PT 11.9 (9.9-13.0) SEC INR 1.0 (0.9-1.1) APTT 29.2 (24.1-38.0) SEC D-Dimer High Sensitivty 188 NG/ML Sodium (135-145) mmol/L Potassium (3.3-5.1) mmol/L Chloride (96-108) mmol/L Carbon Dioxide (22-29) mmol/L Anion Gap (12-20) BUN (9-16) mg/dL Creatinine (0.5-1.4) mg/dL Estim Creat Clear Calc Estimated GFR Random Glucose (60-115) mg/dL Calcium (8.4-10.2) mg/dL Total Bilirubin (0.0-1.0) mg/dL AST (5-31) U/L ALT (0-31) U/L Alkaline Phosphatase (39-117) U/L Total Creatine Kinase (26-140) U/L Troponin I High Sens (<3.5-17.0) ng/L C-Reactive Protein (< or = 0.50) mg/dL B-Natriuretic Peptide (<100) pg/mL Total Protein (6.5-8.0) g/dL Albumin (3.5-5.0) g/dL Lipase (8-78) U/L TSH (0.32-4.0) uIU/mL Beta HCG, Quant mIU/mL Urine Color Urine Appearance Urine pH (5.0-8.0) Ur Specific [place] (1.005-1.025) Urine Protein (NEG-TRACE) MG/DL Urine Glucose (UA) (NEG) MG/DL Urine Ketones (NEG) MG/DL Urine Blood (NEG) Urine Nitrite (NEG) Ur Leukocyte Esterase (NEG) ECG Data Attestation: I personally reviewed and interpreted this ECG as follows: Interpretation: 1211: Normal sinus rhythm rate of 67, normal UT interval QRS duration QTC inte rval, no ST segment elevation, less than [address] segment depression in leads 2, 3 and AVF, inverted T-wave in lead 3 and AVF, no PACs no PVCs Discharge Plan Discharge Clinical Impression: Acute dyspnea, Tachycardia, Post covid-19 condition, unspecified Patient Disposition: Home, Self-Care Additional Instructions: Your blood work was essentially unremarkable, your white blood cell count was slightly low at 3700, your C-reactive protein was slightly elevated at 3.31. The CT pulmonary angiogram pulmonary embolism protocol revealed no blood clots in your lungs and your lungs look normal. The radiologist noted that there was reflux of contrast into your hepatic veins which is concerning for possibly right heart strain. This is a nonspecific finding and I did talk to our covering it integration architect, Dr. Bingham, Call his office tomorrow and tell the office staff that he wants to see you as soon as possible to evaluate your symptoms and possibly get an echocardiogram of your heart. No work for 1 week. You should rest and take it easy. Please return to the emergency department if your symptoms get worse or if you develop any symptoms that are concerning to you. Prescriptions: No Action Vyvanse 20 mg capsule 20 mg PO QAM 0RF sertraline 25 mg tablet 25 mg PO DAILY 0RF norethindrone acetate 5 mg tablet 5 mg PO DAILY 0RF Referrals: Dianna Bingham MD [Physician] - 1 day (Call the office tomorrow to try to make appointment as soon as possible to see Dr. Bingham) Stand Alone Forms: Work/School Release Interventions: ED Discharge Assessment Last Done: 10/30/21 17:48 Discharge Date/Time: 10/30/21 17:52
== END 2021-10-30 17:52 | disposition home or self-care (01) ==
PROVIDERS: Emergency Provider Emergency Medicine Emergency Medical Services; PCP Internal Medicine
DX: R53.1 Weakness (principal); R00.0 Tachycardia, unspecified; R07.89 Other chest pain; R06.02 Shortness of breath; Z79.899 Other long term (current) drug therapy
CPT/HCPCS: 36415; 71275; 80053; 81003; 82550; 83690; 83880; 84443; 84484; 84702; 85025; 85379; 85610; 85652; 85730; 86140; 87040; 93005; 96360; 99284; 99285; Q9967

== ENCOUNTER → 2021-11-08 14:35 | Outpatient (BNVA) | payer OTHER, SELFPAY | PROVIDERS: PCP Internal Medicine; Visit Provider Internal Medicine Pulmonary Disease | DX: R06.00 Dyspnea, unspecified (principal); U09.9 Post COVID-19 condition, unspecified | CPT/HCPCS: 99202 ==

== ENCOUNTER → 2021-11-28 10:26 | Outpatient (REF) | payer OTHER, SELFPAY ==
--- NOTE | 2021-11-28 10:30 | CA_ITS ---
Transthoracic Echocardiogram Patient (Last, First, Middle): Deena Bonilla M Gender: Female Date of : 1985 Age: 36 Procedure Date: 11/28/2021 Procedure Type: Transthoracic Echocardiogram Location: OP Height: 170.18 cm Weight: 58.97 kg BSA: 1.68 m2 Heart Rate: bpm BP: 106 / 70 mmHg Product Safety Technical Assistant: KARRIE Referring MD: Angel Galvin MD Symptoms: R06.00 - Dyspnea, unspecified Study Quality: Adequate ECG Rhythm: Sinus Conclusions: - The left ventricular systolic function is normal. The calculated ejection fraction is 60% by biplane method. - No obvious valvular pathology seen on this study. Findings Left Ventricle Normal left ventricular cavity size. There is normal left ventricular wall thickness. The left ventricular systolic function is normal. The calculated ejection fraction is 60% by biplane method. There is no evidence of regional wall motion abnormalities. Diastolic function is normal for age. Right Ventricle Normal right ventricular cavity size and systolic function. Atria Both atria are normal in size. Aortic Valve There is a normal trileaflet aortic valve. There is no aortic valve stenosis. There is no aortic valve regurgitation. Mitral Valve The mitral valve appears normal. There is no mitral valve regurgitation. There is no mitral valve stenosis. Pulmonic Valve The pulmonic valve is likely normal. Tricuspid Valve Normal tricuspid valve structure. There is no tricuspid valve regurgitation. Tricuspid regurgitation envelope is inadequate for calculation of right ventricular systolic pressure. Great Vessels The asc aorta and aortic arch are normal in size. Venous The inferior vena cava is normal in size and collapses greater than 50% with inspiration. Pericardium/Pleural There is no evidence of pericardial effusion. Prior Study Comparison No prior study available for comparison. Recommendations, Care & Conclusions No obvious valvular pathology seen on this study. Measurements 2D Linear Measurements IVSd: 0.62 0.6-0.9/0.6-1.0 cm LVIDd: 4.64 3.9-5.3/4.2-5.9 cm LVIDd Index: 2.76 2.4-3.2/2.2-3.1 cm/m2 LVIDs: 2.80 2.0-3.6 cm LVPWd: 0.64 0.7-1.1 cm LA Diam: 2.60 2.7-3.8/3.0-4.0 cm LAIDs Index: 1.55 1.5-2.3 cm/m2 LV Mass: 110.03 67-162/88-224 g LV Mass Index: 65.49 43-95/49-115 g/m2 LVOT Diam: 2.10 3.0+(-)1.3 cm 2D Systolic Function EF 4C: 61.70 >55% EF 2C: 59.70 >55% EF BiP: 59.60 >55% Mitral Valve MV Pk E: 0.69 MV PK A: 0.48 MV Decel Time: 270.00 E/A: 1.50 E'Lateral: 16.00 E'Medial: 10.80 E/E' Med: 6.40 E/E' Lat: 4.30 PHT: 79.00 MVA PHT: 2.78 Decel Grady: 2.56 Aortic Valve AoV Pk Frankie: 1.13 AoV Mn Frankie: 0.77 AoV VTI: 0.25 AoV Pk Grad: 5.00 Aov Mn Grad: 3.00 JOSE Cont.VTI: 2.87 LVOT LVOT Pk Frankie: 1.03 LVOT Mn Frankie: 0.71 LVOT VTI: 0.21 LVOT Pk Grad: 4.00 LVOT Mn Grad: 2.00 LVOT Diam: 2.10 LVOT Area: 3.46 Diastolic Function MV Pk E: 0.69 MV Pk A: 0.48 E/A: 1.50 E'Medial: 10.80 E/E' Med: 6.40 E' Laterial: 16.00 E/E' Lat: 4.30 Right Ventricle TAPSE (mm): 26.50 TVS' Frankie: 13.50 Tricuspid Valve RA Press: 3.00 Great Vessels Aorta Sinus of Valsalva: 2.82 2.0-3.[address] Ridge: 2.07 1.7-3.4 cm Ao Asc: 2.60 2.1-3.4 cm Ao Arch: 2.70 Updated in Other Vendor System with Status of Final Contreras Kennedy MD electronically signed on 11/29/2021 1:18:07 PM with status of Final
== END ==
LOC: HO.CARD 10:26
PROVIDERS: PCP Internal Medicine; Visit Provider Internal Medicine Pulmonary Disease
DX: R06.00 Dyspnea, unspecified (principal)
CPT/HCPCS: 93306

== ENCOUNTER 2021-11-29 12:56 | Outpatient (REF) | payer OTHER, SELFPAY ==
--- NOTE | 2021-11-29 17:40 | PFT_ITS ---
INDICATION: Dyspnea. SPIROMETRY: FEV1 to FVC of 84% with an FEV1 of 3.99 L, which is 117% predicted, an FVC of 4.75 L, which is 115% predicted. No significant response to bronchodilators noted. Maximum voluntary ventilation 102% predicted. LUNG VOLUMES: Total lung capacity 109% predicted. DIFFUSION CAPACITY: DLCO 98% predicted. Flow volume loop appears to have some fluttering of the flows during the inspiratory phase. INTERPRETATION: No obstructive nor restrictive ventilatory defects identified. No significant response to bronchodilators noted. Normal maximum voluntary ventilation. Lung volumes are within normal limits. Diffusion capacity is within normal limits. There is some fluttering of the flows during the inspiratory phase suggesting the possibility of a dynamic extrathoracic obstructive process such as vocal cord dysfunction. Clinical correlation warranted. If asthma is in the differential, methacholine challenge may be helpful in assessing for hyper-reactive airways as well. Jassi Chakraborty MD MR/MODL / [id number]
== END 2021-11-29 12:57 | disposition home or self-care (01) ==
LOC: HO.RESP 12:56
PROVIDERS: PCP Internal Medicine; Visit Provider Internal Medicine Pulmonary Disease
DX: R06.00 Dyspnea, unspecified (principal)
CPT/HCPCS: 94060; 94727; 94729

== ENCOUNTER → 2021-12-04 09:00 | Outpatient (BNVA) | payer OTHER, SELFPAY | PROVIDERS: PCP Internal Medicine; Visit Provider Internal Medicine Cardiovascular Disease | DX: R06.00 Dyspnea, unspecified (principal); R42 Dizziness and giddiness | CPT/HCPCS: 93005; 99202 ==

== ENCOUNTER → 2021-12-09 11:01 | Outpatient (REF) | payer OTHER, SELFPAY ==
--- NOTE | 2021-12-09 11:09 | CA_ITS ---
Acquisition Time: 2021-12-09 11:46:43 Total Exercise Time: 00:09:26 Test Indications: dyspnea, unspecified Medications: SERTRALINE Protocol: SAUL Max HR: 171 BPM 91% of Pred: 186 BPM Max BP: 130/070 mmHG Max Work Load: 10.8 METS Exercise stress test with exercise 9 min 26 sec of Saul protocol, achieving 91% MPHR, with moderate to severe SOB with exercise, with mild localized left chest burning at rest and in recovery, she does not recall feeling it during exercise, with normotensive response to to exercise, with EKG changes that meet criteria for ischemia: up to [address] depression inferiorly and V3-V6, Baseline EKG shows downsloping ST inferiorly and nonspecific ST abn V4-V6. Echo images obtained by [place] at rest and immediately post peak exercise. Definity contrast used. Heart rate corrected quickly in recovery. Note: prior to start of exercise, Pt reported feeling lightheaded. She had not eaten or drank much fluids this am. She was given 250cc IV normal saline and shahriar crackers with improvement in her symptom. In recovery she again reported the lightheadedness, fogginess that was treated with another 250cc normal saline. She was encourage to take po fluids. Her postion was gradually transitioned from supine to sitting and eventual standing. Her breathing normalized quickly with rest. Once she was feeling normal her test was ended and she was allowed to leave cardiology in stable condition. Test reviewed with Dr Londono. Referred By: Idris Londono Overread By: ZAHEER TARIQ
== END ==
LOC: HO.CARD 11:01
PROVIDERS: PCP Internal Medicine; Visit Provider Internal Medicine Cardiovascular Disease
DX: R06.00 Dyspnea, unspecified (principal)
CPT/HCPCS: 93350; Q9957

== ENCOUNTER → 2022-01-21 14:33 | Outpatient (BNVA) | payer OTHER, SELFPAY | PROVIDERS: PCP Internal Medicine; Referring Provider Internal Medicine; Visit Provider Internal Medicine Cardiovascular Disease | DX: R42 Dizziness and giddiness (principal); G90.1 Familial dysautonomia [Riley-Day] | CPT/HCPCS: 99212 ==